=== PATIENT | female | born 1955 | race Caucasian/White ===

== ENCOUNTER 2018-05-22 15:03 | Observation (INO) | payer MEDICARE ==
[~2018-05-22] VITALS: Ht 152.4 cm; Wt 78.0 kg
--- NOTE | 2018-05-22 15:03 | NUR ---
PT TO ROOM 11 W/STEADY GAIT. SKIN WARM AND DRY.
[2018-05-22 15:32] LABS: HEMATOCRIT 49.3 % (37.0-47.0); HEMOGLOBIN 16.4 g/dl (12.0-16.0); IMMATURE GRANULOCYTES 0.2 % (0.0-5.0); MEAN CELL VOLUME 94.4 fL CALC (80.0-100.0); MEAN CORPUSCULAR HGB 31.4 pG CALC (26.0-32.0); MEAN CORPUSCULAR HGB CONC 33.3 g/L CALC (32.0-36.0); NEUT# 6.23 thou/uL (2.00-7.15); RED BLOOD COUNT 5.22 mill/uL (4.20-5.60); RED CELL DISTRI WIDTH 13.8 % (11.5-15.5)
[2018-05-22] MEDS ORDERED: LEVOTHYROXIN50 MCG PO (15:35)
[2018-05-22] MEDS ORDERED: LOSARTAN POT25 MG PO (15:36)
[2018-05-22] MEDS ORDERED: ASPIRIN81 MG PO (15:36)
[2018-05-22] MEDS ORDERED: FISH OIL1000 MG PO (15:37)
[2018-05-22] MEDS ORDERED: [UNRECOGNIZED DRUG - OTHER] PO (15:37)
[2018-05-22] MEDS ORDERED: MAGNESIUM500 M3 PO (15:38)
[2018-05-22] MEDS ORDERED: CHELATED POTASS95 MG PO (15:38)
[2018-05-22 15:43] LABS: ANION GAP 14 (6-22 (CALC)); BUN 16 mg/dL (8-23); BUN/CREATININE RATIO 30 (12-20 (CALC)); CARBON DIOXIDE 26 mmol/l (22-30); CHLORIDE 105 mmol/l (95-108); CREATININE 0.5 mg/dL (0.5-1.0); GFR > 60 ML/MIN (>=60 (CALC)); GFR FOR AFR.AMER. > 60 ML/MIN (>=60 (CALC)); POTASSIUM 4.1 mmol/l (3.5-5.1); SODIUM 142 mmol/l (137-146)
--- NOTE | 2018-05-22 16:11 | NUR ---
WARM BLANKET GIVEN, CALL LIGHT WITHIN REACH.
--- NOTE | 2018-05-22 16:11 | NUR ---
PT RESTING QUIETLY, NO CHEST PAIN AT THIS TIME
--- NOTE | 2018-05-22 17:00 | NUR ---
PT CALLED ME INTO HER ROOM AND STATES SHE WOULD LIKE TO JUST GO HOME SHE IS FEELING FINE, I INFORMED HER I WAS NOT HER NURSE BUT I WOULD LET DR. GOMEZ KNOW HER CONCERNS. DR. GOMEZ IN TALKING WITH PT AT THIS TIME. PT HAS DECIDED NOW SHE WILL STAY. SHE STATES SHE CAN ONLY EAT GLUTEN FREE FOOD AND HER IS GOING TO BRING IN SOME FOOD FOR HER IF THAT IS OKAY. I TOLD HER THAT WAS OKAY.
--- NOTE | 2018-05-22 17:51 | NUR ---
FAMILY AT BEDSIDE.
--- NOTE | 2018-05-22 18:55 | NUR ---
CARE ASSUMED. NO REPORT RECEIVED. SPOKE WITH PATIENT. STATES SHE HAD AN EPISODE OF CHEST PAIN 8 DAYS AGO AND THOUGHT IT MAY BE THE FLU. DENIES CHEST PAIN AT PRESENT. AWARE OF ADMISSION AND POSSIBLILITY OF STAYING IN THE ER FOR THE NIGHT. VERBALIZES UNDERSTANDING. DENIES ANY NEEDS AT PRESENT. CALL LIGHT WITHIN REACH.
--- NOTE | 2018-05-22 19:30 | NUR ---
PATIENT HAS A ROOM ASSIGNMENT.
--- NOTE | 2018-05-22 19:55 | NUR ---
REPORT TO MADELINE. PATIENT READIED FOR TRANSPORT TO FLOOR ON THE MONITOR, WITH RN, VIA WHEELCHAIR.
--- NOTE | 2018-05-22 20:15 | NUR ---
TO FLOOR VIA WHEELCHAIR.
[2018-05-22 20:22] VITALS: BP 157/86
--- NOTE | 2018-05-22 21:30 | NUR ---
PATIENT ADMITTED FROM ER VIA WHEELCHAIR WITH ER STAFF IN ATTENDANCE. PATIENT AMB TO THE BR TO VOID AND THEN TO BED-STEADY GAIT. PATIENT DENIES ANY PAIN OR SOB AT THIS ITME. PATIENT IS AWAKE ALERT AND ORIENTEDX3. TELE MONITOR IN PLACE. SALINE LOCK TO RIGHT AC INTACT AND FLUSHES WELL. ABD IS SOFT WITH BS+. LAST BM WAS 05/22 WITHOUT ANY DIFFICULTY. STATES THAT SHE IS VOIDING WITHOUT ANY PROBLEMS. PATIENT STATES THAT SHE HAD AN EPISODE LAST TUESDAY WHEN SHE STATES THAT SHE HAD CHEST HEAVINESS, SOB, BECAME DIAPHORETIC AND NAUSEATED. EPISODE PASSED AND SHE THOUGHT SHE HAD THE FLU BUT DECIDED TODAY TO COME TO THE ER AFTER BEING REFERRED BY LOCAL CLINIC. PATIENT ORIENTED TO ROOM AND SURROUNDINGS. SAFETY PRECAUTIONS REVIEWED WITH PATIENT. INSTRUCTED ON USE OF NURSE CALL LIGHT SYSTEM, TV REMOTE AND PHONE. CALL LIGHT IN REACH. WILL CONT TO MONITOR. AFTER SONIDO REFERRED BY LOCAL CLINIC.
--- NOTE | 2018-05-23 | NUR ---
PATIENT APPEARS SLEEPING AT THIS TIME WITH EYES CLOSED. RESP ARE EVEN AND UNLABORED. TELE MONITOR IN PLACE. CALL LIGHT IN REACH. WILL CONT TO MONITOR.
[2018-05-23 00:13] VITALS: BP 138/81
[2018-05-23 03:20] LABS: IMMATURE GRANULOCYTES 0.3 % (0.0-5.0); MEAN CELL VOLUME 93.8 fL CALC (80.0-100.0); MEAN CORPUSCULAR HGB 31.8 pG CALC (26.0-32.0); MEAN CORPUSCULAR HGB CONC 33.9 g/L CALC (32.0-36.0); NEUT# 4.17 thou/uL (2.00-7.15); RED BLOOD COUNT 4.5 mill/uL (4.20-5.60); RED CELL DISTRI WIDTH 13.8 % (11.5-15.5)
[2018-05-23 03:22] LABS: HEMATOCRIT 42.2 % (37.0-47.0); HEMOGLOBIN 14.3 g/dl (12.0-16.0)
[2018-05-23 03:30] LABS: ALBUMIN 3.7 g/dL (3.2-5.0); ALKALINE PHOSPHATASE 73 u/l (38-126); AMYLASE < 30 u/l (30-110); ANION GAP 10 (6-22 (CALC)); BILIRUBIN, TOTAL 0.4 mg/dL (0.0-1.4); BUN 13 mg/dL (8-23); BUN/CREATININE RATIO 30 (12-20 (CALC)); CARBON DIOXIDE 26 mmol/l (22-30); CHLORIDE 108 mmol/l (95-108); CREATININE 0.4 mg/dL (0.5-1.0); GFR > 60 ML/MIN (>=60 (CALC)); GFR FOR AFR.AMER. > 60 ML/MIN (>=60 (CALC)); LIPASE 993 u/l (23-300); POTASSIUM 3.9 mmol/l (3.5-5.1); SGOT/AST 17 u/l (9-36); SODIUM 141 mmol/l (137-146)
[2018-05-23 04:15] VITALS: BP 124/75
--- NOTE | 2018-05-23 04:27 | NUR ---
PATIENT RESTING IN BED-APPEARS SLEEPING WITH EYES CLOSED. RESP ARE EVEN AND UNLABORED. TELE MONITORING DEVICE IN PLACE. CALL LIGHT IN REACH. WILL CONT TO MONITOR.
--- NOTE | 2018-05-23 07:10 | NUR ---
REPORT RECEIVED FROM JOHN CORREA;PT RESTING IN SEMI FOWLERS POSITION;INTRODUCED SELF TO PT AND POC DISCUSSED;PT DENIES ANY CURRENT PAIN OR NEEDS;RESPIRATIONS EVEN AND UNLABORED ON RA;TELE MONITORING IN PLACE;PT ENCOURAGED TO CALL FOR ASSISTANCE IF NEEDED;FALL PRECAUTIONS IN PLACE WITH CALL LIGHT IN REACH;WILL CONTINUE TO MONITOR
[2018-05-23 09:10] VITALS: BP 144/88
--- NOTE | 2018-05-23 09:10 | NUR ---
PT OOB RESTING IN RECLINER;VS OBTAINED AND ASSESSMENT COMPLETED;PT DENIES ANY CURRENT CHEST PAIN OR PRESSURE,PAIN SCALE AND REPORTING EDUCATED;RESPIRATIONS EVEN AND UNLABORED ON RA,CLEAR LUNG SOUNDS NOTED;ABDOMEN SOFT ON PALPATION AND ACTIVE IN ALL 4 QUADRANTS;TELE MONITORING IN PLACE;#20G TO RAC FLUSHED AND PATENT,SITE APPEARS HEALTHY;PT DENIES ANY ADDITIONAL NEEDS AT THIS TIME AND IS ENCOURAGED TO CALL FOR ASSISTANCE IF NEEDED;CALL LIGHT IN REACH;WILL CONTINUE TO MONITOR
--- NOTE | 2018-05-23 11:46 | NUR ---
PT OOB RESTING IN RECLINER EATING LUNCH;RESPIRATIONS EVEN AND UNLABORED ON RA;PT DENIES ANY CURRENT PAIN OR NEEDS;TELE MONITORING IN PLACE;IV SITE TO [facility] PATENT;ENCOURAGED PT TO CALL FOR ASSISTANCE IF NEEDED;CALL LIGHT IN REACH;WILL CONTINUE TO MONITOR
--- NOTE | 2018-05-23 12:42 | NUR ---
FIRST DOSE OF GASTROGRAFIN ADMINISTERED AT THIS TIME,PT TOLERATED WELL.
--- NOTE | 2018-05-23 13:08 | NUR ---
AT BEDSIDE DISCUSSING POC.
--- NOTE | 2018-05-23 14:00 | NUR ---
LAST DOSE OF GASTROGRAFIN ADMINISTERED AT THIS TIME.
[2018-05-23 15:20] VITALS: BP 136/79
--- NOTE | 2018-05-23 15:50 | NUR ---
PT OOB RESTING IN RECLINER;RESPIRATIONS EVEN AND UNLABORED ON RA;PT DENIES ANY ABDOMINAL OR CHEST PAIN;TELE MONITORING IN PLACE;IV SITE TO RAC PATENT;FALL PRECAUTIONS IN PLACE WITH CALL LIGHT IN REACH;WILL CONTINUE TO MONITOR
--- NOTE | 2018-05-23 20:00 | NUR ---
PATIENT RESTING IN BED WATCHING TV AT THIS TIME. PATIENT IS AWAKE ALERT AND ORIENTEDX3. PATIENT EXPRESSED SOME CONCERNS REGUARDING CURRENT LABS AND DIAG STUDIES THAT WERE DONE TODAY-NO RESULTS AVAILABLE FOR THE ABD CT DONE TODAY. TELE MONITOR IN PLACE. IV SITE TO RIGHT AC INTACT AND APPEARS HEALTHY AT THIS TIME. SAFETY PRECAUTIONS REINFORCED. CALL LIGHT IN REACH. WILL CONT TO MONITOR.
[2018-05-23 20:53] VITALS: BP 152/91
--- NOTE | 2018-05-24 | NUR ---
APPEARS SLEEPING WITH HOB ELEVATED AND EYES CLOSED. RESP ARE EVEN AND UNLABORED. TELE MONITOR IN PLACE. CALL LIGHT IN REACH. WILL CONT TO MONITOR
[2018-05-24 00:40] VITALS: BP 93/56
[2018-05-24 04:05] VITALS: BP 120/77
--- NOTE | 2018-05-24 05:04 | NUR ---
PATIENT APPEARS SLEEPING AT THIS TIME WITH EYES CLOSED. RESP ARE EVEN AND UNLABORED. TELE MONITOR IN PLACE. CALL LIGHT IN REACH. WILL CONT TO MONITOR.
[2018-05-24 05:12] LABS: HEMATOCRIT 43.8 % (37.0-47.0); HEMOGLOBIN 14.6 g/dl (12.0-16.0); IMMATURE GRANULOCYTES 0.3 % (0.0-5.0); MEAN CELL VOLUME 95.2 fL CALC (80.0-100.0); MEAN CORPUSCULAR HGB 31.7 pG CALC (26.0-32.0); MEAN CORPUSCULAR HGB CONC 33.3 g/L CALC (32.0-36.0); NEUT# 3.29 thou/uL (2.00-7.15); RED BLOOD COUNT 4.6 mill/uL (4.20-5.60); RED CELL DISTRI WIDTH 13.8 % (11.5-15.5)
[2018-05-24 05:39] LABS: ALBUMIN 3.6 g/dL (3.2-5.0); ALKALINE PHOSPHATASE 70 u/l (38-126); AMYLASE < 30 u/l (30-110); ANION GAP 11 (6-22 (CALC)); BILIRUBIN, TOTAL 0.5 mg/dL (0.0-1.4); BUN 13 mg/dL (8-23); BUN/CREATININE RATIO 25 (12-20 (CALC)); CARBON DIOXIDE 26 mmol/l (22-30); CHLORIDE 107 mmol/l (95-108); CREATININE 0.5 mg/dL (0.5-1.0); GFR > 60 ML/MIN (>=60 (CALC)); GFR FOR AFR.AMER. > 60 ML/MIN (>=60 (CALC)); LIPASE 131 u/l (23-300); POTASSIUM 3.9 mmol/l (3.5-5.1); SGOT/AST 15 u/l (9-36); SODIUM 140 mmol/l (137-146); TOTAL PROTEIN 5.9 g/dL (6.3-8.2)
--- NOTE | 2018-05-24 07:04 | NUR ---
REPORT RECEIVED FROM JOHN CORREA PT IS RESTING IN BED WITH NO S/S OF DISTRESS NOTED. PT DENIES NEEDS AT THIS TIME. CALL LIGHT IN REACH.
--- NOTE | 2018-05-24 07:05 | NUR ---
REPORT RECEIVED FROM MADELINE. PT IS SLEEPING IN BED WITH NO S/S OF DISTRESS NOTED. BED ALARM IN PLACE FOR SAFETY.
[2018-05-24 07:31] VITALS: BP 137/81
--- NOTE | 2018-05-24 08:10 | NUR ---
PT IS SITTING IN RECLINER. ASESSMENT DONE. TELE IN PLACE. RESPS EVEN AND UNLABORED. PT IS A&O X3. #20 RAC THAT APPEARS HEALTHY. PT DENIES PAIN AT THIS TIME. SAFETY PRECAUTIONS REINFORCED AND CALL LIGHT IN REACH.
[2018-05-24 11:18] VITALS: BP 153/92
--- NOTE | 2018-05-24 12:00 | NUR ---
PT IS EATING HER LUNCH WITH NO S/S OF DISTRESS NOTED. PT DENIES NEEDS AT THIS TIME. CALL LIGHT IN REACH.
--- NOTE | 2018-05-24 16:41 | NUR ---
Discharge instructions given. Patient verbalizes understanding of same. Discharged in stable condition via Wheelchair to Home with spouse. All belongings sent with pt.
== END 2018-05-24 16:45 | disposition home or self-care (01) ==
LOC: ED 15:03 → ED-I 16:35 → ED 16:51 → ED-I 16:52 → MS2 16:52
PROVIDERS: Family Medicine; ADMIT Internal Medicine Nephrology; ATTEND Internal Medicine Nephrology
DX: R07.89 Other chest pain (principal); I10 Essential (primary) hypertension; E03.9 Hypothyroidism, unspecified; F41.9 Anxiety disorder, unspecified; E66.9 Obesity, unspecified; K57.30 Diverticulosis of large intestine without perforation or abscess without bleeding; N83.9 Noninflammatory disorder of ovary, fallopian tube and broad ligament, unspecified; R74.8 Abnormal levels of other serum enzymes; Z68.33 Body mass index [BMI] 33.0-33.9, adult; Z79.899 Other long term (current) drug therapy; R06.00 Dyspnea, unspecified
CPT/HCPCS: J1650

== ENCOUNTER → 2018-06-09 | Outpatient (REF) | payer MEDICARE ==
[~2018-06-09] MED LIST: ASPIRIN81 MG PO; CHELATED POTASS95 MG PO; FISH OIL1000 MG PO; LEVOTHYROXIN50 MCG PO; LOSARTAN POT25 MG PO; MAGNESIUM500 M3 PO; [UNRECOGNIZED DRUG - OTHER] PO
== END | disposition home or self-care (01) ==
LOC: LAB 14:48
DX: Z12.9 Encounter for screening for malignant neoplasm, site unspecified (principal); R19.09 Other intra-abdominal and pelvic swelling, mass and lump